=== PATIENT | female | born 1955 | race Caucasian/White ===

== ENCOUNTER → 2018-08-30 | Outpatient (CLI) | payer OTHER ==
--- NOTE | 2018-08-30 14:00 | Diagnostic Imaging Report ---
EXAM: US ABDOMEN COMPLETE INDICATION: Gallbladder polyp. COMPARISON: No prior comparisons are available for review, although the patient had prior abdominal ultrasound exams on 08/2013 and 02/2014. TECHNIQUE: Transverse and longitudinal lazo scale and color doppler sonographic images of the abdomen were obtained. FINDINGS: LIVER Measures 12.6 cm in the right midclavicular line. Normal echogenicity of the liver with normal contour. There is a 4.7 cm simple appearing left hepatic lobe cyst. SPLEEN Measures 9.4 cm in maximum diameter. Normal echogenicity, no masses. GALLBLADDER There is a 0.5 cm hyperechoic focus within the gallbladder wall but is nonmobile and demonstrates no shadowing. No demonstrated doppler flow. No gallbladder wall thickening, distension, stone, or pericholecystic fluid. Negative reported sonographic Matthews's sign. BILE DUCTS No intra nor extra-hepatic biliary dilation. Common bile duct measures 0.5 cm PANCREAS: Visualized portions are normal. RIGHT KIDNEY: 11.5 x 4.1 x 5.3 cm Echogenicity: Normal Collecting System: No hydronephrosis Stones: None Cyst/Mass: None LEFT KIDNEY: 9.2 x 4.6 x 5.1 cm Echogenicity: Normal Collecting System: No hydronephrosis Stones: None Cyst/Mass: None VESSELS: Aorta: Visualized portions are within normal size limits Inferior Vena Cava: Visualized portions are normal Main Portal Vein: 0.8 cm, normal size with hepatopetal flow. FREE FLUID: None IMPRESSION: A 5 mm hyperechoic focus in the gallbladder wall is most consistent with polyp. Comparison with prior abdominal ultrasounds reportedly performed in 2013 would be helpful. If no prior comparisons are available, then follow-up ultrasound is recommended in 12 months. Signed by: Dr. Candis Parkinson MD on 08/30/2018 1:56 PM
== END ==
LOC: US 11:47
PROVIDERS: ATTEND Family Medicine
DX: K82.4 Cholesterolosis of gallbladder (principal)
CPT/HCPCS: 76700